=== PATIENT | female | born 1970 | race Caucasian/White ===

== ENCOUNTER 2018-05-20 03:09 | Observation (INO) ==
[2018-05-20 04:33] LABS: Basophils # 0.1 10*3/uL (0.0-0.2); Basophils % 0.5 % (0.0-0.8); Eosinophils % 0.1 % (0.00-10.9); Hematocrit 44.2 VOL% (35.7-47.0); Hemoglobin 14.1 GM/DL (12.0-16.0); Immature Granulocytes % 0.4 %; Immature Granulocytes Absolute 0.06 #; Lymphocytes # 0.5 10*3/uL (1.4-4.0); Lymphocytes % 3.2 % (21.3-54.2); Mean Corpuscular HGB Conc 31.9 GM/DL (32-36); Mean Corpuscular Hemoglobin 28 PG (27-34); Mean Corpuscular Volume 87.4 FL (87-102); Mean Platelet Volume 10.5 FL (9.6-12.0); Monocytes # 0.7 10*3/uL (0.11-0.8); Neutrophils # 13.2 10*3/uL (1.4-7.4); Neutrophils % 90.8 % (38.7-73.9); Platelet Count 233 T/CUMM (130-400); Red Blood Count 5.06 MC/CUMM (3.8-5.5); Red Cell Distribution Width 13.2 % (9.3-17.3); White Blood Count 14.5 T/CUMM (4-12)
[2018-05-20 05:00] LABS: Albumin 3.9 G/DL (3.4-5.0); Bilirubin,Total 0.6 MG/DL (0.2-1.0); Calcium 8.7 MG/DL (8.5-10.1); Osmolality,Calculated 275.5 MOS/KG (273-304); Potassium 3.8 MMOL/L (3.5-5.1); Total Protein 7.7 G/DL (6.4-8.3)
[2018-05-20 05:01] LABS: Band Neutrophils 1 % (0-10); Lymphocytes 5 % (20-55); Segmented Neutrophils 91 % (50-85)
[2018-05-20 05:02] LABS: Platelet Estimate Normal; Total Cells Counted 100
[2018-05-20] MEDS ORDERED: SODIUM CHLORIDE 0.9% 1,000 ML IV STA ×2 (05:30→08:06)
[2018-05-20] MEDS ORDERED: KETOROLAC 30 MG/1 ML VIAL IV STA (05:30)
[2018-05-20] MEDS ORDERED: MORPHINE 4 MG/1 ML VIAL IV STA (06:04)
[2018-05-20] MEDS ORDERED: ONDANSETRON 4 MG/2 ML VIAL IV STA (06:05)
[2018-05-20] MEDS ORDERED: CLINDAMYCIN INJ 900 MG in PREMIX 1 EACH IV STA (06:36)
[2018-05-20 08:16] LABS: Apearance,Urine CLEAR (Clear); Bilirubin,Urine Negative (Negative); Blood, Urine Negative (Negative); Glucose,Urine (UA) Negative (Negative); Ketones,Urine 80 mg/dL (Negative); Nitrite,Urine Negative (Negative); Protein,Urine Negative; RBC,Urine 4 /HPF (0-4); Squamous Epithelial Cell,Urine Occasional /HPF (0-10); Urine Color Yellow (Yellow); Urine Specific Gravity > 1.060 (1.001-1.035); Urine Urobilinogen < 2.0 EU/DL (0.2-1.0)
[2018-05-20] MEDS ORDERED: BICILLIN LA 1,200,000 UNIT/2 ML SYRINGE IM STA (08:37)
[2018-05-20] MEDS ORDERED: MORPHINE 4 MG/1 ML VIAL IV PRN ×2 (08:38→09:04)
[2018-05-20] MEDS ORDERED: ZALEPLON 5 MG CAPSULE PO PRN (08:38)
[2018-05-20] MEDS ORDERED: ONDANSETRON 4 MG/2 ML VIAL IV PRN (08:38)
[2018-05-20] MEDS ORDERED: BENZOCAINE/MENTHOL LOZENGE 18/BOX PO PRN (09:01)
[2018-05-20] MEDS ORDERED: PANTOPRAZOLE 40 MG VIAL IV SCH (09:30)
[2018-05-20] MEDS: ENOXAPARIN 40 MG/0.4 ML SYRINGE SUBCUT SCH (09:57)
[2018-05-20 11:37] LABS: Calcium 7.8 MG/DL (8.5-10.1); Osmolality,Calculated 276.4 MOS/KG (273-304); Potassium 3.7 MMOL/L (3.5-5.1)
[2018-05-20] MEDS: ACETAMINOPHEN 325 MG TABLET PO PRN ×3 (11:52→23:53)
[2018-05-20] MEDS: SODIUM CHLORIDE 0.9% 1,000 ML IV SCH ×2 (12:22→21:25)
[2018-05-20] MEDS: PANTOPRAZOLE 40 MG VIAL IV SCH (21:26)
[2018-05-21 06:35] LABS: Calcium 7.6 MG/DL (8.5-10.1); Osmolality,Calculated 282.8 MOS/KG (273-304); Potassium 3.4 MMOL/L (3.5-5.1)
[2018-05-21 06:46] LABS: Basophils % 0.3 % (0.0-0.8); Eosinophils # 0.1 10*3/uL (0.0-0.87); Eosinophils % 1.5 % (0.00-10.9); Hematocrit 38.5 VOL% (35.7-47.0); Immature Granulocytes % 0.1 %; Immature Granulocytes Absolute 0.01 #; Lymphocytes # 0.6 10*3/uL (1.4-4.0); Lymphocytes % 6.9 % (21.3-54.2); Mean Corpuscular HGB Conc 31.2 GM/DL (32-36); Mean Corpuscular Hemoglobin 27 PG (27-34); Mean Corpuscular Volume 87.7 FL (87-102); Mean Platelet Volume 11.3 FL (9.6-12.0); Monocytes # 0.8 10*3/uL (0.11-0.8); Monocytes % 9.7 % (1.7-12.7); Neutrophils % 81.5 % (38.7-73.9); Platelet Count 188 T/CUMM (130-400); Red Blood Count 4.39 MC/CUMM (3.8-5.5); Red Cell Distribution Width 13.4 % (9.3-17.3)
[2018-05-21 07:05] LABS: White Blood Count 8.6 T/CUMM (4-12)
[2018-05-21] MEDS ORDERED: POTASSIUM CHLORIDE 20 MEQ/15 ML UDCUP PO PRN (07:47)
[2018-05-21] MEDS ORDERED: POTASSIUM CHLORIDE RIDER 10 MEQ in PREMIX 1 EACH IV PRN (07:47)
[2018-05-21] MEDS: PANTOPRAZOLE 40 MG VIAL IV SCH (09:42)
[2018-05-21] MEDS ORDERED: PROPOFOL 200 MG/20 ML VIAL IV ONE (10:32)
[2018-05-21] MEDS ORDERED: LIDOCAINE 2% 5 ML VIAL ONE (10:32)
[2018-05-21] MEDS: ENOXAPARIN 40 MG/0.4 ML SYRINGE SUBCUT SCH (11:18)
[2018-05-21] MEDS: ACETAMINOPHEN 325 MG TABLET PO PRN (12:00)
[2018-05-21 12:40] VITALS: BP 99/63
== END 2018-05-21 14:53 | disposition home or self-care (01) ==
LOC: N.EDINP 03:09 → N.ED 03:09 → N.2E 12:07
PROVIDERS: ADMIT Internal Medicine; ATTEND Internal Medicine